=== PATIENT | female | born 1990 | race Caucasian/White ===

== ENCOUNTER → 2017-05-25 14:40 | Outpatient (CLI) | payer OTHER, SELFPAY ==
[2017-05-25 15:10] LABS: Basophils % 0.3 % (0.1-2.0); Eosinophils # 0.2 K/mm3 (0.0-0.4); Eosinophils % 1.3 % (0.1-12.0); Hematocrit 44.4 % (37.0-47.0); Hemoglobin 15.2 g/dL (12.2-16.2); Lymphocytes # 2.4 K/mm3 (0.7-4.5); Lymphocytes % 19.1 K/mm3 (10-50); Mean Corpuscular HGB Conc 34.3 g/dL (31.8-35.4); Mean Corpuscular Volume 87.6 fl (81-99); Mean Platelet Volume 7.7 fl (7.4-10.4); Monocytes # 0.4 K/mm3 (0.1-1.0); Monocytes % 3.5 % (1.7-9.3); Neutrophils # 9.6 K/mm3 (1.8-7.8); Neutrophils % 75.9 % (37.0-80.0); Platelet Count 259 K/mm3 (142-424); Red Blood Count 5.07 M/mm3 (4.20-5.40); Red Cell Distribution Width 12.5 % (11.5-17.5); White Blood Count 12.6 K/mm3 (4.8-10.8)
[2017-05-28 12:32] LABS: HIV Screen 4th Generation wRfx Non Reactive (Non Reactive); Hepatitis B Surface Antigen Negative (Negative); Hepatitis C Antibody <0.1 s/co ratio (0.0-0.9); Rapid Plasma Reagin Ab Titer Non Reactive (NonRea<1:1); Rubella Antibodies, IgG 1.35 index (Immune >0.99)
== END ==
PROVIDERS: Family Provider Internal Medicine; PCP Internal Medicine; Visit Provider Nurse Practitioner Obstetrics & Gynecology
DX: Z34.90 Encounter for supervision of normal pregnancy, unspecified, unspecified trimester (principal)
CPT/HCPCS: 85025; 86592; 86703; 86762; 86850; 87340; 87380; G0432

== ENCOUNTER → 2017-05-26 14:37 | Outpatient (CLI) | payer OTHER, SELFPAY ==
--- NOTE | 2017-05-26 14:41 | US_ITS ---
US OB transvaginal HISTORY: ITS.REASON: US OB- Spotting and Dates ORDERING PHYSICIAN: Tomas Jeffrey MD PATIENT AGE: 26 years COMPARISON: None FINDINGS: An intrauterine gestational sac is present with a pole with a crown-rump length of 0.81cm correlating to gestational age of 6 weeks 6 days. heart tones are present with an FHR of 144 bpm's. Yolk sac is noted. Estimated due date by ultrasound is 01/13/2018. Adnexa: Small bilateral follicles with a 1 7-m cyst in the left ovary. IMPRESSION: Live intrauterine gestation at 6 weeks 6 days as described above with estimated due date of 01/13/2018.
== END ==
PROVIDERS: Family Provider Internal Medicine; PCP Internal Medicine; Visit Provider Nurse Practitioner Obstetrics & Gynecology
DX: O26.841 Uterine size-date discrepancy, first trimester (principal)
CPT/HCPCS: 76830

== ENCOUNTER → 2017-09-04 12:58 | Outpatient (CLI) | payer OTHER, SELFPAY ==
--- NOTE | 2017-09-04 13:04 | US_ITS ---
US OB /maternal detail: INDICATION: ITS.REASON: US OB Complete ORDERING PHYSICIAN: Tomas Jeffrey MD PATIENT AGE: 26 years TECHNIQUE: ultrasound transabdominal scanning. COMPARISON: No previous relevant studies. FINDINGS: Single viable intrauterine gestation. Breech position. Placenta: Posterior with ANT Accessory Lobe placenta grade 1. There is average amount fluid. The cervix appears satisfactory. Closed and measuring 3 cm in length. Complete survey performed and was unremarkable on the submitted images as in PACS. No discrete anomalies identified on survey imaging by technologist. Active fetus. Three-vessel cord with satisfactory umbilical cord insertion. 4- chamber heart noted. Survey of brain & ventricles. Face and neck survey unremarkable. Diaphragm and chest views unremarkable. Abdomen: Both kidneys noted and unremarkable. Stomach noted and satisfactory. Spine: Survey of the spine satisfactory with no anomalies identified nor imaged. Both arms and legs noted. Amniotic Fluid: Adequate. Maternal adnexa: No significant findings. Measurements: Average ultrasound age 21w4d. Gestational Age 21w2d. Estimated due date by ultrasound age 0901/11/2018.. Estimated weight 425 grams.This is 54th percentile BPD = 21w2d OFD = 23w0d HC = 21w5d AC = 21w5d FL = 21w2d Heart Rate = 152 Cerebellum = 21w3d Humerus = 21w1d HC/AC is 1.16 (1.06-1.25). CI is 71% FL/BPD is 70%. FL/AC is 21%(20-24%). IMPRESSION: There is a single live fetus in breech presentation with an average ultrasound age of 21 weeks and 4 days. No obvious anomalies. heart and body motion noted. Placenta is posterior with an anterior accessory lobe. Please see above for detail.
== END ==
PROVIDERS: Family Provider Internal Medicine; PCP Internal Medicine; Visit Provider Nurse Practitioner Obstetrics & Gynecology
DX: Z36.0 Encounter for antenatal screening for chromosomal anomalies (principal)
CPT/HCPCS: 76811

== ENCOUNTER 2017-10-12 08:38 | Outpatient (CLI) | payer OTHER, SELFPAY ==
[2017-10-12 10:20] VITALS: BP 113/71; PULSE 105; RESP 18; O2SAT 97
== END 2017-10-12 10:35 | disposition home or self-care (01) ==
LOC: LAB 08:38 → INF 10:10
PROVIDERS: Family Provider Internal Medicine; PCP Internal Medicine; Visit Provider Nurse Practitioner Obstetrics & Gynecology
DX: O09.899 Supervision of other high risk pregnancies, unspecified trimester (principal); Z3A.26 26 weeks gestation of pregnancy; Z34.90 Encounter for supervision of normal pregnancy, unspecified, unspecified trimester; Z67.91 Unspecified blood type, Rh negative
CPT/HCPCS: 36415; 96372; J2790

== ENCOUNTER → 2017-11-04 14:46 | Outpatient (CLI) | payer OTHER, SELFPAY ==
--- NOTE | 2017-11-04 14:53 | US_ITS ---
US OB biophysical profile: INDICATION: ITS.REASON: US OB BPP Growth- LGA ORDERING PHYSICIAN: Tomas Jeffrey MD PATIENT AGE: 26 years TECHNIQUE: ultrasound transabdominal scanning. COMPARISON: No previous relevant studies. FINDINGS: Single viable intrauterine gestation. Cephalic position Currently. Placenta: Posterior placenta grade 1. With accessory lobe anteriorly. No previa The cervix appears satisfactory. Closed and measuring 3 cm in length. Complete survey performed and was unremarkable on the submitted images as in PACS. No discrete anomalies identified on survey imaging by technologist. Active fetus.Three-vessel cord with satisfactory umbilical cord insertion. Survey of brain & ventricles. In posterior fossa unremarkable Face and neck survey unremarkable. Nasion intact Diaphragm and chest views unremarkable. 4- chamber heart imaged. Cine loop included. LVOT imaged Abdomen: Both kidneys noted and unremarkable. Stomach noted and satisfactory. Spine: Survey of the spine satisfactory with no anomalies identified nor imaged. Both arms and legs noted. Appears to be a female fetus Amniotic Fluid: Adequate. Maternal adnexa: No significant findings encountered. Measurements: Average ultrasound age 30 weeks 3 days. Gestational Age 30 weeks 0 days. Estimated due date by ultrasound age 901/10/2018. Estimated weight 1489 grams. +/- 217 g BPD = 31 weeks 0 day OFD = 30 weeks 6 day HC = 30 week 5 day AC = 30 weeks 0 day FL = 29 weeks 6 day Heart Rate = 146 BPM BIOPHYSICAL PROFILE. 8 of possible 8 points. 2+ scored for each category.: No breathing, movement, tone, and amniotic fluid volume SD ratio 2.0. RI = 0.51 HC/AC = 1.09.(1.09-1.26.) CI = 77%.(70-86%). FL/BPD is 73%. FL/AC is 22%. IMPRESSION: 30 weeks 3 days average ultrasound age . Active fetus Posterior placenta with small anterior accessory placenta Cephalic position Biophysical Profile: 8 of possible 8 points . SD ratio = 2.0 . Anatomical survey of unremarkable & WNL
== END ==
PROVIDERS: Family Provider Internal Medicine; PCP Internal Medicine; Visit Provider Nurse Practitioner Obstetrics & Gynecology
DX: O36.63X0 Maternal care for excessive fetal growth, third trimester, not applicable or unspecified (principal)
CPT/HCPCS: 76816; 76819; 76820

== ENCOUNTER → 2017-12-08 16:41 | Outpatient (REF) | payer OTHER, SELFPAY | LOC: LAB 16:41 | PROVIDERS: Visit Provider Nurse Practitioner Obstetrics & Gynecology | DX: Z34.90 Encounter for supervision of normal pregnancy, unspecified, unspecified trimester (principal) | CPT/HCPCS: 86403 ==

== ENCOUNTER 2018-01-05 00:56 | Inpatient (IN) ==
[2018-01-05 05:43] LABS: Basophils % 0.4 % (0.1-2.0); Eosinophils # 0.1 K/mm3 (0.0-0.4); Eosinophils % 1.3 % (0.1-12.0); Hematocrit 38.4 % (37.0-47.0); Hemoglobin 13.1 g/dL (12.2-16.2); Lymphocytes # 1.9 K/mm3 (0.7-4.5); Lymphocytes % 21.3 K/mm3 (10-50); Mean Corpuscular HGB Conc 34.1 g/dL (31.8-35.4); Mean Corpuscular Hemoglobin 30.1 pg (27.0-31.2); Mean Corpuscular Volume 88.3 fl (81-99); Mean Platelet Volume 8.4 fl (7.4-10.4); Monocytes # 0.4 K/mm3 (0.1-1.0); Monocytes % 4.2 % (1.7-9.3); Neutrophils # 6.5 K/mm3 (1.8-7.8); Neutrophils % 72.8 % (37.0-80.0); Platelet Count 223 K/mm3 (142-424); Red Blood Count 4.35 M/mm3 (4.20-5.40); Red Cell Distribution Width 14.5 % (11.5-17.5)
--- NOTE | 2018-01-05 08:13 | History & Physical Report ---
OB - H&P: HPI Antepartum - History of Present Illness Chief complaint: Contractions, term History of present illness: She is a 27 lady who is now 40 weeks gestational age. She was seen in my office yesterday and was found to be 4 cm dilated. She was having irregular contractions. As result of that we elected to admit her this morning for delivery. [facility] History I have reviewed the patient's past medical history: Yes Medical History: Reports:: Depression, Gastroesophageal Reflux Disease(GERD) Other Medical History: Reports: Sinus Problems Other Surgeries: Yes: Dilation and Curettage. No: Amputation: No Fractures: No - *Social History Smoking Status: Former smoker Alcohol Intake: never Substance Use Type: denies use - Psychiatric History Pschychiatric History:: Reports:: Depression *Family Hx:: Coronary Artery Disease, Heart Attack RN SECURITY history: Spontaneous Para: 1 Review of Systems - Review of Systems Review of systems:: pertinent systems reviewed and negative unless documented below Meds Home Medications Medication Instructions Recorded Confirmed Type 1 tab PO DAILY each 05/25/17 10/12/17 History vitamin,calcium,tgjpnrvy-eyoi-jhbnw acid tablet Ferrous Sulfate 325 mg PO ONCE 18 10/12/17 History Allergies Allergy/AdvReac Type Severity Reaction Status Date / Time No Known Drug Allergies Allergy Unknown Verified 01/04/18 10:20 [NO KNOWN DRUG ALLERGIES] OB - H&P: Exam - Physical Exam Vital signs: Temp Pulse Resp BP Pulse Ox 98.7 F 82 18 132/82 99 01/05/18 05:39 01/05/18 05:39 01/05/18 05:39 01/05/18 05:39 01/05/18 05:39 - Constitutional no acute distress - Routine HEENT Exam Head: Present: normocephalic Eye: Present: EOMI, PERRL ENT: Present: mucous membranes moist - Routine Neck Exam Present: supple, full ROM - Routine Respiratory Exam Absent: accessory muscle use (good air entry bilaterally), respiratory distress, wheezes, crackles - Routine Cardiovascular Exam Present: RRR. Absent: murmur - Routine Abdominal Exam Present: soft, normoactive bowel sounds. Absent: tenderness, distended, guarding - Routine Rectal Exam Patient deferred: visual exam, digital exam - Routine Exam Patient deferred: external exam, groin exam, perineal exam - Routine Extremities Exam Present: full ROM. Absent: cyanosis, edema - Routine Skin Exam Present: intact. Absent: cyanosis - Routine Neurological Exam Present: alert, oriented X3 - Routine Psychiatric Exam Present: normal affect OB - Results - Labs Labs: Short CBC 01/05/18 Range/Units 05:25 WBC 9.0 (4.8-10.8) K/mm3 Hgb 13.1 (12.2-16.2) g/dL Hct 38.4 (37.0-47.0) % Plt Count 223 (142-424) K/mm3 OB - A/P Antepartum (1) Normal delivery Current visit: Yes Status: Acute - Additional Plan Planning to breastfeed?: Yes Plan: expectant management Additional Information:: This morning she is 5 cm dilated. I ruptured membranes and there was clear fluid. She is 80% effaced and station -1. We will expect a vaginal delivery.
--- NOTE | 2018-01-05 09:35 | Progress Note ---
[facility] Anesthesia Checklist - Structural Data Admitted From: Home Planned Operative Procedure/s: labor epidural Consent for Planned Operative Procedure(s) Verified: Yes - Airway Assessment C-Spine Mobility Assessed: Yes TMJ Mobility Assessed: Yes Dentition: Good Dentition - Neurological Assessment Level of Consciousness: Awake, Alert, Appropriate - Anesthesia Plan Anesthesia Risk discussed: Yes Anesthesia Plan: Verified ASA Class: II Anesthesia Type: Epidural [facility] History I have reviewed the patient's past medical history: Yes Medical History: Reports:: Depression, Gastroesophageal Reflux Disease(GERD) Other Medical History: Reports: Sinus Problems Other Surgeries: Yes: Dilation and Curettage. No: Amputation: No Fractures: No - *Social History Smoking Status: Former smoker Alcohol Intake: never Substance Use Type: denies use - Psychiatric History Pschychiatric History:: Reports:: Depression *Family Hx:: Coronary Artery Disease, Heart Attack [employer] history: Spontaneous Para: 1
--- NOTE | 2018-01-05 11:30 | Procedure Note ---
- Delivery Note Delivery Date:: 01/05/18 Delivery Time:: 11:17 Anesthesia Type: Epidural Was labor medically induced?: No Induction method: none Gestational age (weeks): 39 Infant delivered prior to 39 weeks?: No Justification for early elective delivery:: Active Labor Gender: Female at 1 minute: 9 at 5 minutes: 9 AF:: Clear fluid Delivery Procedure:: She is a 27-year-old 3 para 1 who is 39 weeks gestational age. She was seen in my office yesterday and was found to be 4 cm dilated. She is having irregular contractions. She came in this morning was found to be 4-5 cm. To augment her labor. She had her membranes ruptured and under labor epidural progress to full dilation. She delivered spontaneously a live born female child at 11:17 AM on the morning of January 05, 2018. On deliver the head it was noted there was a loose nuchal cord which was easily reduced. This was followed by the anterior shoulder and the rest of the infant's body atraumatically. The oropharynx and nasopharynx were bulb suctioned. We allowed the cord to continue to pulsate for approximately 1 minute and then doubly clamped the cord. The cord was then cut and the infant was placed on the mother's abdomen for further care. The nurses assigned Apgars of 9 at 1 minute and 9 at 5 minutes. We then obtained cord blood as well as cord pH. Using gentle traction on the cord and countertraction the fundus I was able to easily deliver the placenta intact. He had a normal three-vessel cord. There were no perineal or vaginal lacerations. She has a Rh- blood, she is rubella immune and was group B streptococcus po sitive. She did receive IV antibiotics while in labor. Her estimated blood loss was approximately 400 cc. Placental Delivery Description: Spontaneous
[2018-01-06 05:40] LABS: Hematocrit 35.7 % (37.0-47.0); Hemoglobin 12.2 g/dL (12.2-16.2)
--- NOTE | 2018-01-06 08:43 | Progress Note ---
Internal Medicine - PN: Subj *Date: 01/06/18 *Time: 08:43 Interval history: She continues to do well. She is breast-feeding. Her lochia is normal. She denies any pain. Exam Vital signs and Labs for Last 24 Hours: Temp Pulse Resp BP Pulse Ox 98.2 F 77 18 143/84 98 01/05/18 19:45 01/05/18 19:45 01/05/18 19:45 01/05/18 19:45 01/05/18 19:45 Laboratory Results - last 24 hr 01/05/18 11:25: Cord ABG pH 7.40 01/06/18 05:05: Hgb 12.2, Hct 35.7 L 01/06/18 05:05: Blood Type A Negative, Antibody Screen Negative, Screen Negative, Baby's Rh Status Positive I & O for Last 24 hours: Intake & Output 01/03/18 01/04/18 01/05/18 01/06/18 11:59 11:59 11:59 11:59 Weight 203 lb - Constitutional no acute distress Assessment and Plan (1) Normal delivery Current visit: Yes Status: Acute Category: Medical Code(s): O80 - Encounter for full-term uncomplicated delivery - Assessment and plan all Dx Assessment and Plan for all problems:: She continues to do very well. We will plan to send her home tomorrow.
--- NOTE | 2018-01-07 08:07 | Discharge Summary ---
General - General Admission date:: 01/05/18 Discharge date: 01/07/18 HPI HPI: She is a 27-year-old 3 now para 2 aborta 1 who is 39 weeks gestational age. She was having contractions in my office and we elected to admit her the following day. She was found to be 4-5 cm on admission. Hospital Course Hospital Course: On admission she was found to be 4-5 cm dilated. She subsequently progressed to full dilation and delivered spontaneously a live born female child at 1117 in the morning of January 05, 2018. The baby was a liveborn female child weighing 6 lbs. 14 oz. and she was 19 inches long. She had Apgars of 9 at 1 minute and 9 at 5 minutes. Venecia has done well and has remained in throughout her hospitalization. She is eating and drinking and ambulating. She is breast-fe eding. Her lochia is normal. She has a Rh- blood and she has received RhoGam. She was group B Streptococcus positive and receive IV antibiotics while in labor. She is discharged home to follow-up with me in approximately 2 weeks time. She with her vitamins and iron. She was given the usual instructions with respect to limiting her activity, driving activity. Rhogam Administration: Given Objective Vital signs: Temp Pulse Resp BP Pulse Ox 98.1 F 83 18 130/76 99 01/06/18 19:54 01/06/18 19:54 01/06/18 19:54 01/06/18 19:54 01/06/18 19:54 no acute distress Results Labs on day of discharge: Labs from last 24 hours 01/06/18 01/06/18 11:00 05:05 Screen Negative Rhogam Infusion Rhogam release DS: Diagnosis - Discharge Diagnosis (1) Normal delivery Status: Acute Discharge Plan - Patient Discharge Instructions ACTIVITY: No heavy lifting DIET: continue same diet Patient Instructions: Depression, Hemorrhage, Post Discharge Instructions - Follow up Plan Disposition: Home, Self-Shelter Medications: Home Medications Medication Instructions Recorded Confirmed Type 1 tab PO DAILY each 05/25/17 01/05/18 History vitamin,calcium,gfplxkix-kowu-djeos acid tablet Ferrous Sulfate 325 mg PO DAILY 10/12/17 01/05/18 History Prescriptions/Medication Reconciliation: Continue vitamin,calcium,lhgxujqz-iuhv-jlaps acid tablet 1 tab PO DAILY each Ferrous Sulfate 325 mg PO DAILY
[2018-01-07 10:43] VITALS: BP 131/72
== END 2018-01-07 10:41 | disposition home or self-care (01) ==
LOC: OB 05:07
PROVIDERS: ADMIT Nurse Practitioner Obstetrics & Gynecology; ATTEND Nurse Practitioner Obstetrics & Gynecology